=== PATIENT | male | born 1990 | race Caucasian/White ===

== ENCOUNTER 2019-03-12 18:20 | Emergency (ER) | payer SELFPAY ==
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
[2019-03-12 18:38] VITALS: BP 105/46; PULSE 59; TEMP 98.1; BMI 26.6
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
== END 2019-03-12 20:00 | disposition home or self-care (01) ==
LOC: JER 18:20 → JERFT 18:20
DX: M79.5 Residual foreign body in soft tissue (principal); W45.8XXS Other foreign body or object entering through skin, sequela; W34.00XS Accidental discharge from unspecified firearms or gun, sequela; S31.000S Unspecified open wound of lower back and pelvis without penetration into retroperitoneum, sequela
CPT/HCPCS: 99281-25

== ENCOUNTER 2021-03-15 11:51 | Emergency (ER) | payer SELFPAY ==
[2021-03-15 12:14] VITALS: BP 120/72; PULSE 63; TEMP 98; BMI 25.6
[2021-03-15] MEDS ORDERED: IBUPROFEN 600 MG TABLET (FP) PO ONE ×2 (13:04→13:07)
[2021-03-15] MEDS ORDERED: DIPHTH,PERTUSS(ACELL),TET 0.5 ML DISP.SYRIN IM ONE (13:37)
== END 2021-03-15 13:45 | disposition home or self-care (01) ==
LOC: JERFT 11:51
PROC: 3E0234Z Introduction of Serum, Toxoid and Vaccine into Muscle, Percutaneous Approach (ICD-10-PCS; principal; 2021-03-15)
DX: K05.00 Acute gingivitis, plaque induced (principal); K08.89 Other specified disorders of teeth and supporting structures
CPT/HCPCS: 99284-25

== ENCOUNTER 2021-11-09 08:58 | Emergency (ER) | payer OTHER ==
[2021-11-09 09:11] VITALS: BP 96/63; PULSE 51; TEMP 97.9; BMI 24.2
[2021-11-09] MEDS ORDERED: KETOROLAC TROMETHAMINE 30 MG/1 ML VIAL IM ONE (10:37)
[2021-11-09] MEDS ORDERED: KETOROLAC TROMETHAMINE 30 MG/1 ML VIAL ONE (10:40)
== END 2021-11-09 11:04 | disposition home or self-care (01) ==
LOC: JERFT 08:58
PROC: 3E0233Z Introduction of Anti-inflammatory into Muscle, Percutaneous Approach (ICD-10-PCS; principal; 2021-11-09)
DX: K05.00 Acute gingivitis, plaque induced (principal); R22.0 Localized swelling, mass and lump, head
CPT/HCPCS: 99284-25

== ENCOUNTER 2023-02-23 11:55 | Emergency (ER) | payer OTHER ==
[2023-02-23 12:33] VITALS: BMI 25.2
[2023-02-23] MEDS ORDERED: AMOX TR/POT CLAV 875MG/125MG TABLETS (FP) PO ONE (13:30)
[2023-02-23] MEDS ORDERED: AMOX TR/POT CLAV 875MG/125MG TABLETS (FP) ONE (14:11)
[2023-02-23 17:43] VITALS: BP 117/68; PULSE 58; RESP 12; TEMP 98.9
== END 2023-02-23 17:44 | disposition short-term general hospital (02) ==
LOC: JERFT 11:55 → JER 11:55 → JERFT 17:44
DX: R22.0 Localized swelling, mass and lump, head (principal); K12.2 Cellulitis and abscess of mouth
CPT/HCPCS: 70486-TC; 99285-25